=== PATIENT | female | born 1985 | race Caucasian/White ===

== ENCOUNTER 2017-08-17 11:59 | Emergency (ER) | payer SELFPAY ==
[~2017-08-17] VITALS: Ht 162.6 cm; Wt 63.6 kg
[~2017-08-17 11:59] MED LIST: ATIVAN 0.50.5 MG/TAB PO; CELEXA 20MG20 MG/TAB PO; GLUCOSAMINE HC500 MG PO; K-TAB20 PO; LANTUS SOLOS100 U/ML SC; LANTUS100 U/ML SQ; LEVEMIR100 U/ML; LEVEMIR100 U/ML SC; LIPITOR20 MG PO; NAPROSYN 2250 MG/TAB PO; NORCO 325 MG-51 TAB PO; NOVOLIN R100 U/ML IV; NOVOLOG 100U100 U/M1; NOVOLOG 100U100 U/M1 SQ; NOVOLOG FLEX100 U/ML SC; NOVOLOG MIX 70/10 ML SQ
[2017-08-17 12:02] VITALS: BP 169/93; TEMP 98.1
[2017-08-17] MEDS ORDERED: NORCO 325 MG-51 TAB PO (14:02)
[2017-08-17] MEDS ORDERED: AMOXICILLIN 50500 MG PO (14:02)
[2017-08-17 14:46] VITALS: PULSE 91
== END 2017-08-17 14:22 | disposition home or self-care (01) ==
LOC: COL.ER 11:59
DX: K02.9 Dental caries, unspecified (principal); F32.9 Major depressive disorder, single episode, unspecified; E11.9 Type 2 diabetes mellitus without complications; F17.210 Nicotine dependence, cigarettes, uncomplicated; Z79.4 Long term (current) use of insulin
CPT/HCPCS: J1885

== ENCOUNTER 2017-09-08 15:03 | Emergency (ER) | payer SELFPAY ==
[~2017-09-08] VITALS: Ht 162.6 cm; Wt 65.9 kg
[~2017-09-08 15:03] MED LIST changes: +AMOXICILLIN 50500 MG PO; -LEVEMIR100 U/ML; +LEVEMIR100 U/ML SQ; -NOVOLOG 100U100 U/M1
[2017-09-08 15:05] VITALS: TEMP 98
[2017-09-08 15:35] LABS: BASO # 0.1 (0.0-0.2); BASO % 0.7 % (0.0-2.0); EOS # 0.2 (0.0-0.7); EOS % 2.3 % (0-4.0); GRAN # 5.2 (1.4-6.5); GRAN % 63.1 % (42.2-75.2); HEMATOCRIT 43.7 % (37.0-47.0); LYMPH # 2.2 (1.2-3.4); LYMPH % 26.2 % (20.0-51.0); MEAN CELL VOLUME 93 fl (80.0-100.0); MEAN CORPUSCULAR HEMOGLOBIN 32 pg (27.0-31.0); MEAN CORPUSCULAR HGB CONC 34 g/dl (33.0-37.0); MEAN PLATELET VOLUME 10.4 fl (7.4-10.4); MONO # 0.6 (0.1-0.6); MONO % 7.5 % (1.7-9.3); PLATELET COUNT 244 K/mm3 (130-400); RED BLOOD COUNT 4.71 M/mm3 (4.10-5.30); REDCELL DISTRIBUTION WIDTH-CV 11.6 % (11.5-14.5)
[2017-09-08 15:36] LABS: COLLECTION METHOD CLEAN CATCH
[2017-09-08 15:45] LABS: ALANINE AMINOTRANSFERASE 36 U/L (9-52); ALBUMIN 5.5 gm/dL (3.5-5.0); ALKALINE PHOSPHATASE 111 U/L (50-136); ANION GAP 22 mmol/L (7-16); AST,SGOT 23 U/L (15-37); BLOOD UREA NITROGEN 15 mg/dL (7-17); CALCIUM 10.3 mg/dL (8.4-10.2); CHLORIDE 99 mmol/L (98-107); CREATININE, serum 0.52 mg/dL (0.52-1.25); GLUCOSE 203 mg/dL (74-106); LIPASE 38 U/L (23-300); POTASSIUM 4.2 mmol/L (3.4-5.0); SODIUM 135 mmol/L (137-145); TOTAL PROTEIN 8.9 gm/dL (6.4-8.2)
[2017-09-08 15:48] LABS: CARBON DIOXIDE 14 mmol/L (22-30)
[2017-09-08 15:48] LABS: PH 5 (5-8); URINE APPEARANCE Hazy; URINE BACTERIA None Seen /hpf; URINE BILIRUBIN Negative (NEGATIVE); URINE BLOOD 1+ (NEGATIVE); URINE COLOR Yellow; URINE GLUCOSE 3+ (NEGATIVE); URINE KETONE 2+ (NEGATIVE); URINE LEUKOCYTE ESTERASE Negative (NEGATIVE); URINE NITRATE Negative (NEGATIVE); URINE PROTEIN(semi-quant) Negative (NEGATIVE); URINE RBC 0-2 /hpf; URINE UROBILINOGEN Negative (NEGATIVE)
[2017-09-08 16:10] LABS: ACETONE,SERUM SMALL
[2017-09-08 17:42] LABS: ANION GAP 14 mmol/L (7-16); BLOOD UREA NITROGEN 11 mg/dL (7-17); CALCIUM 8.5 mg/dL (8.4-10.2); CARBON DIOXIDE 18 mmol/L (22-30); CHLORIDE 106 mmol/L (98-107); CREATININE, serum 0.41 mg/dL (0.52-1.25); GLUCOSE 93 mg/dL (74-106); POTASSIUM 4.1 mmol/L (3.4-5.0); SODIUM 138 mmol/L (137-145)
[2017-09-08 17:43] LABS: ACETONE,SERUM SMALL
[2017-09-08 19:24] VITALS: BP 122/72; PULSE 98
== END 2017-09-08 19:07 | disposition home or self-care (01) ==
LOC: COL.ER 15:03
PROVIDERS: Emergency Medicine
DX: E10.65 Type 1 diabetes mellitus with hyperglycemia (principal); R11.2 Nausea with vomiting, unspecified; F17.210 Nicotine dependence, cigarettes, uncomplicated
CPT/HCPCS: J1815; J2405; J7030

== ENCOUNTER → 2018-02-25 | Outpatient (CLI) | payer SELFPAY | LOC: SUN.DIA | DX: E10.8 Type 1 diabetes mellitus with unspecified complications (principal); Z79.4 Long term (current) use of insulin; F17.210 Nicotine dependence, cigarettes, uncomplicated ==

== ENCOUNTER → 2018-03-30 | Outpatient (CLI) | payer SELFPAY | LOC: SUN.DIA 10:05 | DX: E10.8 Type 1 diabetes mellitus with unspecified complications (principal); Z79.4 Long term (current) use of insulin; F17.210 Nicotine dependence, cigarettes, uncomplicated | CPT/HCPCS: G0108 ==

== ENCOUNTER 2019-06-07 12:25 | Emergency (ER) | payer SELFPAY ==
[~2019-06-07] VITALS: Ht 162.6 cm; Wt 72.7 kg
[2019-06-07 12:40] VITALS: TEMP 98.4
[2019-06-07 12:58] LABS: BASO # 0.1 (0.0-0.2); BASO % 0.5 % (0.0-2.0); EOS # 0.1 (0.0-0.7); EOS % 0.7 % (0-4.0); GRAN # 7.1 (1.4-6.5); GRAN % 77.1 % (42.2-75.2); HEMOGLOBIN 14.4 g/dl (12.5-16.0); LYMPH # 1.4 (1.2-3.4); LYMPH % 15.3 % (20.0-51.0); MEAN CELL VOLUME 94 fl (80.0-100.0); MEAN CORPUSCULAR HEMOGLOBIN 31 pg (27.0-31.0); MEAN CORPUSCULAR HGB CONC 33 g/dl (33.0-37.0); MEAN PLATELET VOLUME 11.1 fl (7.4-10.4); MONO # 0.6 (0.1-0.6); MONO % 6.1 % (1.7-9.3); PLATELET COUNT 240 K/mm3 (130-400); RED BLOOD COUNT 4.68 M/mm3 (4.10-5.30); REDCELL DISTRIBUTION WIDTH-CV 12.1 % (11.5-14.5)
[2019-06-07 13:05] LABS: ACETONE,SERUM NEGATIVE
[2019-06-07 13:08] LABS: ALANINE AMINOTRANSFERASE 15 U/L (9-52); ALBUMIN 4.8 gm/dL (3.5-5.0); ALKALINE PHOSPHATASE 111 U/L (50-136); ANION GAP 20 mmol/L (7-16); AST,SGOT 21 U/L (15-37); BILIRUBIN,TOTAL 0.8 mg/dL (0.0-1.0); BLOOD UREA NITROGEN 12 mg/dL (7-17); CALCIUM 9.8 mg/dL (8.4-10.2); CARBON DIOXIDE 16 mmol/L (22-30); CHLORIDE 101 mmol/L (98-107); CREATININE, serum 0.53 (0.52-1.25); GLUCOSE 206 mg/dL (74-106); POTASSIUM 3.8 mmol/L (3.4-5.0); SODIUM 138 mmol/L (137-145); TOTAL PROTEIN 7.7 gm/dL (6.4-8.2)
[2019-06-07 13:28] LABS: COLLECTION METHOD CLEAN CATCH
[2019-06-07 13:34] LABS: MUCOUS Present /lpf; PH 5 (5-8); SQUAMOUS EPITHELIAL 0-2 /hpf; URINE APPEARANCE Clear; URINE BACTERIA Rare /hpf; URINE BILIRUBIN Negative (NEGATIVE); URINE BLOOD 1+ (NEGATIVE); URINE COLOR Yellow; URINE GLUCOSE 3+ (NEGATIVE); URINE KETONE 2+ (NEGATIVE); URINE LEUKOCYTE ESTERASE Negative (NEGATIVE); URINE NITRATE Negative (NEGATIVE); URINE PROTEIN(semi-quant) Negative (NEGATIVE); URINE RBC 0-2 /hpf; URINE UROBILINOGEN Negative (NEGATIVE)
[2019-06-07 13:49] LABS: ARTERIAL BLD GAS O2 SATURATION 98.6 % (92-100); ARTERIAL BLD GAS TCO2 CT 17.2; ARTERIAL BLOOD GAS BASE EXCESS -5.8 (-2-2); ARTERIAL BLOOD GAS HCO3 16.5 meq/L (22-26); ARTERIAL BLOOD GAS PCO2 24.8 mmHg (35-45); ARTERIAL BLOOD GAS pH 7.44 (7.35-7.45)
[2019-06-07 13:50] LABS: ARTERIAL BLOOD GAS PO2 131.9 mmHg (80-100)
--- NOTE | 2019-06-07 16:19 | NUR ---
ABE denny responded to a social worker clinical consult for the patient due to needing medication (insulin) resources. ABE denny met with the patient to discuss options and provided the [facility] Resource Guide, RX card, a list of [place] medical providers, an application to [employer] and information on the [place] [facility]. The patient reports she can no longer receive services with [facility] due to three missed appointments. ABE denny contacted [facility] and they confirmed they will not take the patient back for services. ABE denny provided education on where she can get insulin. The patient has social supports and is knowledgable of other community resources, if needed. ABE denny collaborated the above information with the patient's nurse.
[2019-06-07 17:44] LABS: CALCIUM 8.4 mg/dL (8.4-10.2); CREATININE, serum 0.44 (0.52-1.25); POTASSIUM 3.8 mmol/L (3.4-5.0)
[2019-06-07 18:31] VITALS: BP 121/89; PULSE 93
[2019-06-07] MEDS ORDERED: LEVEMIR SQ (18:47)
== END 2019-06-07 18:34 | disposition home or self-care (01) ==
LOC: COL.ER 12:25
PROVIDERS: Physician Assistant
DX: R11.2 Nausea with vomiting, unspecified (principal); F32.9 Major depressive disorder, single episode, unspecified; F41.9 Anxiety disorder, unspecified; E10.10 Type 1 diabetes mellitus with ketoacidosis without coma; F17.210 Nicotine dependence, cigarettes, uncomplicated
CPT/HCPCS: J1815; J7030; J7042